=== PATIENT | female | born 1995 | race Caucasian/White ===

== ENCOUNTER 2019-04-30 20:11 | Emergency (ER) | payer BC ==
[~2019-04-30] VITALS: Ht 167.6 cm; Wt 83.9 kg
[2019-04-30 20:53] LABS: BASOPHILS % (AUTO) 0.2 % (0.0-2.0); HEMATOCRIT 39 % (33-45); HEMOGLOBIN 13.5 g/dL (11.5-14.8); LYMPHOCYTES # (AUTO) 0.5 /CMM (0.8-4.8); LYMPHOCYTES % (AUTO) 6.6 % (20.0-44.0); MEAN CORPUSCULAR HGB CONC 35 g/dl (31.0-36.0); MEAN CORPUSCULAR VOLUME 90 fL (82-100); MONOCYTES # (AUTO) 0.2 /CMM (0.1-1.30); NEUTROPHILS # (AUTO) 7.5 /CMM (1.8-8.9); NEUTROPHILS % (AUTO) 91.2 % (43.0-81.0); PLATELET COUNT (AUTO) 240 /CMM (150-450); RED BLOOD CELL COUNT(AUTO) 4.26 MIL/uL (4.0-5.2); WHITE BLOOD COUNT (AUTO) 8.2 K/uL (4.3-11.0)
[2019-04-30] MEDS ORDERED: ONDANSETRON HCL/PF 4 MG/2 ML VIAL ONE (20:56)
[2019-04-30] MEDS ORDERED: MORPHINE SULFATE INJ 4 MG/ML DISP.SYRIN ONE ×2 (20:57→22:58)
[2019-04-30] MEDS ORDERED: MORPHINE SULFATE INJ 2 MG/ML DISP.SYRIN IV ONE ×2 (21:00→23:00)
[2019-04-30] MEDS ORDERED: ONDANSETRON HCL/PF - ER 4 MG/2 ML VIAL IV ONE (21:00)
[2019-04-30] MEDS ORDERED: IV NS 0.9% 1,000 ML BAG IV ONE (21:00)
[2019-04-30 21:04] LABS: APPEARANCE,URINE Cloudy (CLEAR); BILIRUBIN,URINE Negative (NEGATIVE); BLOOD, URINE Negative Ery/uL (NEGATIVE); COLOR,URINE Yellow (YELLOW); KETONES,URINE >=160 (NEGATIVE); LEUKOCYTE ESTERASE ,URINE Negative (NEGATIVE); NITRITE, URINE Negative (NEGATIVE); PROTEIN,URINE Negative (NEGATIVE); UGLUCOSE Negative (NEGATIVE)
[2019-04-30 21:07] LABS: CREATININE 0.8 mg/dL (0.6-1.3); POTASSIUM 3.5 mmol/L (3.5-5.1)
--- NOTE | 2019-04-30 21:11 | NUR ---
PT BIB EMS C/O RLQ ABD PAIN RADIATING TO BACK X 1/2HOUR, IN BED, FLUIDS STARTED, LABS DRAWN AND SENT TO LAB
[2019-04-30 21:12] LABS: ALBUMIN 4.6 g/dL (3.4-5.0); BILIRUBIN,DIRECT 0.1 mg/dL (0.0-0.2); BILIRUBIN,TOTAL 0.4 mg/dL (0.2-1.0)
[2019-04-30 21:23] LABS: BACTERIA,URINE Many /HPF (None Seen); RBC,URINE 0-2 /HPF (0-2); SQUAMOUS EPITHELIAL CELL,UR Few /HPF (None Seen); URINE AMORPHOUS URATE Moderate /HPF (None Seen); WBC,URINE 0-2 /HPF (0-3)
[2019-04-30] MEDS ORDERED: IOHEXOL-300 100 ML VIAL IV ONE (21:47)
[2019-04-30] MEDS ORDERED: CT SWABBABLE VALVE TRANS SET 1 EA INFUS.SET MC ONE (21:47)
[2019-04-30] MEDS ORDERED: IV NS 0.9% 250 ML IV ONE (21:48)
--- NOTE | 2019-04-30 22:10 | NUR ---
PT BACK FROM CT
--- NOTE | 2019-05-01 02:01 | NUR ---
PER ARIES TURCIOS AFTERNOON BABYSITTER NO BEDS AVAILABLE AT THIS TIME TO TRANSFER WITH GYNECOLOGICAL SPECIALIST. WILL FOLLOW UP
--- NOTE | 2019-05-01 02:32 | NUR ---
CALLED [facility], UNABLE TO TRASFER AT THIS TIME.
--- NOTE | 2019-05-01 02:46 | NUR ---
SPOKE WITH CHIRAG FROM [facility], STILL NO BEDS AVAILABLE AT THIS TIME FOR TRANSFER
[2019-05-01 03:27] VITALS: BP 126/72
--- NOTE | 2019-05-01 04:15 | NUR ---
PT ACCEPTED TO [facility] ACCEPTING MD: DR. BARKSDALE ROOM ASSIGNMENT: [id number] NUMBER FOR REPORT: [phone]
--- NOTE | 2019-05-01 04:43 | NUR ---
PT WILL BE TRANSFERRED VIA [facility]. ETA [id number]
--- NOTE | 2019-05-01 04:47 | NUR ---
CALLED IN REPORT TO RN AT [facility] EMERGENCY DEPARTMENT, GOING TO ROOM [id number]
--- NOTE | 2019-05-01 05:34 | NUR ---
TRANSPORT HERE FOR UTILIZATION REVIEW RN, REPORT GIVEN TO EMT
--- NOTE | 2019-05-01 05:53 | NUR ---
PT TAKEN TO [place] FOR HIGHER LEVEL OF CARE
== END 2019-05-01 05:55 | disposition short-term general hospital (02) ==
LOC: ER 20:15
DX: D39.12 Neoplasm of uncertain behavior of left ovary (principal); D39.11 Neoplasm of uncertain behavior of right ovary; R10.31 Right lower quadrant pain; R11.2 Nausea with vomiting, unspecified; F10.10 Alcohol abuse, uncomplicated; Y90.9 Presence of alcohol in blood, level not specified
CPT/HCPCS: 36415; 74177; 80048; 80076; 81001; 83605; 83690; 84703; 85025; 87077; 87081; 87086; 96361; 96374; 96375; 96376; 99285; J2270 ×2; J2405; J7050; Q9967; 81000-TC